=== PATIENT | female | born 1995 | race Caucasian/White ===

== ENCOUNTER 2020-07-14 11:08 | Emergency (ER) | payer OTHER ==
[2020-07-14 11:58] LABS: BASOPHILS % (AUTO) 0.6 %; EOSINOPHILS # (AUTO) 0.1 10^3/uL (0.0-0.7); EOSINOPHILS % (AUTO) 1.4 %; HGB - HEMOGLOBIN 12.1 g/dL (12.0-16.0); LYMPHOCYTES # (AUTO) 1.7 10^3/uL (1.5-3.5); LYMPHOCYTES % (AUTO) 33.9 %; MEAN CORPUSCULAR HEMOGLOBIN 28.1 pg (27.0-31.0); MEAN CORPUSCULAR HGB CONC 31.5 g/dL (32.0-36.0); MEAN CORPUSCULAR VOLUME 89.1 fL (81.0-99.0); MEAN PLATELET VOLUME 9.2 fL (7.9-10.8); MONOCYTES # (AUTO) 0.6 10^3/uL (0.0-1.0); MONOCYTES % (AUTO) 12.8 %; NEUTROPHILS # (AUTO) 2.6 10^3/uL (1.5-6.6); NEUTROPHILS % (AUTO) 51.1 %; PLT - PLATELET COUNT 295 10^3/uL (130-450); RED BLOOD COUNT 4.31 10^6/uL (4.20-5.40); RED CELL DISTRIBUTION WIDTH 15.3 % (12.0-15.0)
[2020-07-14 12:00] LABS: BILIRUBIN,URINE NEGATIVE (NEGATIVE); GLUCOSE, URINE (UA) NEGATIVE (NEGATIVE); KETONES,URINE (UA) NEGATIVE (NEGATIVE); LEUKOCYTE ESTERASE, URINE NEGATIVE (NEGATIVE); NITRITE,URINE NEGATIVE (NEGATIVE); OCCULT BLOOD,URINE MODERATE (NEGATIVE); PH,URINE 7.5 PH (5.0-7.5); PROTEIN,URINE NEGATIVE (NEGATIVE); UROBILINOGEN,URINE 0.2 (NORMAL) E.U./dL (NORMAL)
[2020-07-14 12:04] LABS: CLARITY,URINE CLEAR (CLEAR); HCG UR QUAL NEGATIVE
[2020-07-14 12:10] LABS: BACTERIA,URINE None Seen /HPF (None Seen); RBC,URINE 0-5 /HPF (0-5); SQUAMOUS EPITHELIAL CELL,UR MOD Squamous (<= Few)
[2020-07-14 12:17] LABS: ALBUMIN 3.9 g/dL (3.2-5.5); ALBUMIN/GLOBULIN RATIO 1.3 (1.0-2.2); BILIRUBIN,TOTAL 0.5 mg/dL (0.2-1.0); TOTAL PROTEIN 6.9 g/dL (6.7-8.2)
--- NOTE | 2020-07-14 12:17 | ED Physician Documentation ---
History of Present Illness - Stated complaint Stated Complaint: FEMALE - Chief complaint Chief Complaint: Abd Pain - Additonal information Additional information: 25-year-old female presents to the emergency department for evaluation of heavy vaginal bleeding. She reports that her menstrual cycle started on the 10th as it typically does but yesterday afternoon she began bleeding more heavily. She reports changing her tampon about 12 times in the last 24 hours. She feels lightheaded and dizzy but has had no syncope.She does have a ParaGard in place which was placed in January 2020. She reports regular cycles with this. They typically last 4 days Review of Systems Constitutional: reports: Reviewed and negative Ears: reports: Reviewed and negative Nose: reports: Reviewed and negative Throat: reports: Reviewed and negative Cardiac: reports: Reviewed and negative. denies: Chest pain / pressure, Palpitations, Pedal edema Respiratory: reports: Reviewed and negative. denies: Dyspnea, Cough GI: reports: Reviewed and negative : reports: Vaginal bleeding Skin: reports: Reviewed and negative Musculoskeletal: reports: Reviewed and negative Neurologic: reports: Near syncope, Reviewed and negative. denies: Generalized weakness, Focal weakness, Numbness, Syncope, Seizure Psychiatric: reports: Reviewed and negative Endocrine: reports: Reviewed and negative PD PAST MEDICAL HISTORY - Allergies Allergies/Adverse Reactions: Allergies Allergy/AdvReac Type Severity Reaction Status Date / Time Sulfa (Sulfonamide Allergy Unknown Verified 07/14/20 11:18 Antibiotics) PD ED PE NORMAL - General General: Alert and oriented X 3, No acute distress - Neck Neck: Supple, no meningeal sign - Cardiac Cardiac: RRR, No murmur, No gallop, No rub - Respiratory Respiratory: No respiratory distress, Clear bilaterally - Abdomen Abdomen: Normal bowel sounds, Non tender, Non distended - Derm Derm: Normal color, Warm and dry, No rash - Neuro Neuro: Alert and oriented X 3, 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, No motor deficit Eye Opening: Spontaneous Motor: Obeys Commands Verbal: Oriented GCS Score: 15 Results - Vitals Vitals: Vital Signs - 24 hr 07/14/20 07/14/20 11:12 13:30 Temperature 36.9 C Heart Rate 88 70 Respiratory 18 18 Rate Blood Pressure 127/66 128/75 O2 Saturation 98 100 Oxygen O2 Source Room air - Labs Labs: Laboratory Tests 07/14/20 07/14/20 07/14/20 11:48 11:48 11:48 WBC 5.0 RBC 4.31 Hgb 12.1 Hct 38.4 MCV 89.1 MCH 28.1 MCHC 31.5 L RDW 15.3 H Plt Count 295 MPV 9.2 Neut # (Auto) 2.6 Lymph # (Auto) 1.7 [place] # (Auto) 0.6 Eos # (Auto) 0.1 Baso # (Auto) 0.0 Absolute Nucleated RBC 0.00 Nucleated RBC % 0.0 Sodium 140 Potassium 3.8 Chloride 105 Carbon Dioxide 27 Anion Gap 8.0 BUN 15 Creatinine 1.0 Estimated GFR (MDRD) 67 L Glucose 71 Calcium 9.0 Total Bilirubin 0.5 AST 22 ALT 19 Alkaline Phosphatase 48 Total Protein 6.9 Albumin 3.9 Globulin 3.0 Albumin/Globulin Ratio 1.3 Urine Color YELLOW Urine Clarity CLEAR Urine pH 7.5 Ur Specific [place] 1.015 Urine Protein NEGATIVE Urine Glucose (UA) NEGATIVE Urine Ketones NEGATIVE Urine Occult Blood MODERATE H Urine Nitrite NEGATIVE Urine Bilirubin NEGATIVE Urine Urobilinogen 0.2 (NORMAL) Ur Leukocyte Esterase NEGATIVE Urine RBC 0-5 Urine WBC 0-3 Ur Squamous Epith Cells MOD Squamous H Urine Bacteria None Seen Ur Microscopic Review INDICATED Urine Culture Comments NOT INDICATED Urine HCG, Qual NEGATIVE - Rads (name of study) pelvic US Radiology: Final report received (4.2 cm left ovarian cyst. IUD in appropriate position.) PD MEDICAL DECISION MAKING - ED course Complexity details: reviewed results, considered differential, d/w patient ED course: 25-year-old female presents the emergency department with reported heavy vaginal bleeding for 4 days. She has a copper ParaGard in place. Reassuringly her v ital signs here are normal without hypotension or tachycardia. Hemoglobin is normal. Ultrasound did not reveal any worrisome findings. We do make note of a 4.2 cm left ovarian cyst and the IUD in normal position. Patient reports to me that she [place] will [place] follow-up there. We discussed that if heavy vaginal bleeding persists she may benefit from hormone therapy to include Depo-Provera versus OCP. Emergent return precautions discussed Departure - Departure Disposition: 01 Home, Self Care Clinical Impression: DUB (dysfunctional uterine bleeding) Condition: Stable Record reviewed to determine appropriate education?: Yes Instructions: ED Bleed Irregular Vaginal Comments: Carolyn continue to follow-up with the [employer] tomorrow. Your labs and hemoglobin today are normal. The pelvic ultrasound shows a 4 cm left ovarian cyst. Your IUD is in normal position. To discuss if hormone therapy is appropriate to control your vaginal bleeding. If at any point you have a heart rate that is sustained greater than 120 bpm at rest, you have fainting episodes or fever or suddenly severe lower abdominal pain please return to the ED
[2020-07-14 13:37] VITALS: BP 128/75
--- NOTE | 2020-07-15 06:56 | Ultrasound Report ---
PROCEDURE: Pelvic w/Transvaginal INDICATIONS: HEAVY VB, NEG PREG TEST TECHNIQUE: Real-time scanning was performed of the pelvic organs, with image documentation. Additional endovagi nal scanning was necessary due to incomplete visualization of the adnexal and endometrial structures by transabdominal scanning. COMPARISON: None. FINDINGS: Transabdominal scanning: Limited scanning through the kidneys shows no hydronephrosis. No pathologi c free abdominal or pelvic fluid. Endovaginal scanning: Uterus: Uterus is normal in size at 8.2 x 4.8 x 6.1 cm. The endometrium measures 4 mm in combined t hickness. An intrauterine device is present within the endometrial cavity. Ovaries: Right ovary measures 4.1 x 1.8 x 3.7 cm. Left ovary measures 5.3 x 4.3 x 4.3 cm. Incidental note of a simple left ovarian cyst measuring 4.2 x 3.2 x 3.3 cm. No suspicious solid ovarian/adnexal mass lesions on either side. IMPRESSION: 1. Pelvis without acute sonographic abnormalities. 2. IUD in place within the endometrial cavity. 3. Incidental note of simple left ovarian cyst measuring up to 4.2 cm in size. Reviewed by: Joel Burrell MD on 07/14/2020 2:25 PM PDT Approved by: Joel Burrell MD on 07/14/2020 2:25 PM PDT Station ID: [id number]
== END 2020-07-14 15:30 | disposition home or self-care (01) ==
LOC: ED 11:08
DX: N93.8 Other specified abnormal uterine and vaginal bleeding (principal); N83.292 Other ovarian cyst, left side; Z97.5 Presence of (intrauterine) contraceptive device
CPT/HCPCS: 36415; 76830; 76856; 80053; 81001; 81003; 81025; 83690; 85025; 87086; 99283; 99284

== ENCOUNTER 2020-08-08 21:54 | Emergency (ER) | payer OTHER ==
[2020-08-08 22:18] LABS: BILIRUBIN,URINE NEGATIVE (NEGATIVE); GLUCOSE, URINE (UA) NEGATIVE (NEGATIVE); KETONES,URINE (UA) NEGATIVE (NEGATIVE); LEUKOCYTE ESTERASE, URINE NEGATIVE (NEGATIVE); NITRITE,URINE NEGATIVE (NEGATIVE); OCCULT BLOOD,URINE MODERATE (NEGATIVE); PROTEIN,URINE NEGATIVE (NEGATIVE); UROBILINOGEN,URINE 0.2 (NORMAL) E.U./dL (NORMAL)
[2020-08-08 22:21] LABS: CLARITY,URINE CLEAR (CLEAR); HCG UR QUAL NEGATIVE
[2020-08-08 22:27] LABS: BACTERIA,URINE Few /HPF (None Seen); RBC,URINE 4 /HPF (0-5); SQUAMOUS EPITHELIAL CELL,UR MANY Squamous (<= Few)
[2020-08-08 22:34] LABS: BASOPHILS % (AUTO) 0.4 %; EOSINOPHILS # (AUTO) 0.1 10^3/uL (0.0-0.7); EOSINOPHILS % (AUTO) 0.6 %; HGB - HEMOGLOBIN 12.2 g/dL (12.0-16.0); LYMPHOCYTES # (AUTO) 2.5 10^3/uL (1.5-3.5); LYMPHOCYTES % (AUTO) 29.9 %; MEAN CORPUSCULAR HGB CONC 32.6 g/dL (32.0-36.0); MEAN CORPUSCULAR VOLUME 88.8 fL (81.0-99.0); MEAN PLATELET VOLUME 9.2 fL (7.9-10.8); MONOCYTES % (AUTO) 11.4 %; NEUTROPHILS # (AUTO) 4.9 10^3/uL (1.5-6.6); NEUTROPHILS % (AUTO) 57.5 %; PLT - PLATELET COUNT 302 10^3/uL (130-450); RED BLOOD COUNT 4.21 10^6/uL (4.20-5.40); RED CELL DISTRIBUTION WIDTH 15.3 % (12.0-15.0); WHITE BLOOD COUNT 8.4 x10^3/uL (4.8-10.8)
[2020-08-08] MEDS ORDERED: METOCLOPRAMIDE 10 MG TABLET PO STA (22:43)
[2020-08-08 22:46] LABS: ALBUMIN 4.1 g/dL (3.2-5.5); ALBUMIN/GLOBULIN RATIO 1.3 (1.0-2.2); BILIRUBIN,TOTAL 0.6 mg/dL (0.2-1.0); CREATININE 0.9 mg/dL (0.4-1.0); TOTAL PROTEIN 7.2 g/dL (6.7-8.2)
[2020-08-08] MEDS: IBUPROFEN 600 MG TABLET PO STA ×2 (22:48→22:51)
[2020-08-08] MEDS ORDERED: KETOROLAC 30 MG/ML VIAL IM STA (23:03)
--- NOTE | 2020-08-08 23:14 | ED Physician Documentation ---
PD HPI ABD PAIN - Stated complaint Stated Complaint: ABD PX - Chief complaint Chief Complaint: Neuro - History obtained from History obtained from: Patient, Friend - Additional information Additional information: 25-year-old woman with past medical history of left ovarian cyst presents with abdominal pain sudden onset at 7 PM starting 2 nights ago, intermittent, associated with nausea but no vomiting. Contraction like pain, severe, nonradiating, not relieved with ibuprofen. Denies fevers, urinary symptoms, back pain, vaginal discharge or lesions. Last menstrual period - Started today. Patient is , not currently . Review of Systems Ten Systems: 10 systems reviewed and negative Constitutional: denies: Fever, Chills GI: reports: Abdominal Pain, Nausea. 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 - Past Surgical History Past Surgical History: Yes HEENT: Tonsil/Adenoidectomy - Present Medications Home Medications: Ambulatory Orders Medication Instructions Recorded Confirmed No Known Home Medications 08/08/20 08/08/20 - Allergies Allergies/Adverse Reactions: Allergies Allergy/AdvReac Type Severity Reaction Status Date / Time Sulfa (Sulfonamide Allergy Unknown Verified 08/08/20 22:05 Antibiotics) - Social History Does the pt smoke?: No Smoking Status: Never smoker Does the pt drink ETOH?: Yes Does the pt have substance abuse?: No - Immunizations Immunizations are current?: Yes - POLST Patient has POLST: No PD ED PE NORMAL - Vitals Vital signs reviewed: Yes - General General: Alert and oriented X 3 - HEENT HEENT: Atraumatic, PERRL, EOMI - Neck Neck: Supple, no meningeal sign - Cardiac Cardiac: RRR - Respiratory Respiratory: No respiratory distress, Clear bilaterally - Abdomen Abdomen: Normal bowel sounds, Other (discomfort to palpation in LLQ) - Female Female : Deferred - Rectal Rectal: Deferred - Back Back: No CVA TTP - Derm Derm: Normal color - Extremities Extremities: No deformity - Neuro Neuro: Alert and oriented X 3 - Psych Psych: Normal mood, Normal affect Results - Vitals Vitals: Oxygen O2 Source Room air - Labs Labs: Laboratory Tests 08/08/20 08/08/20 08/08/20 22:10 22:10 22:28 WBC 8.4 RBC 4.21 Hgb 12.2 Hct 37.4 MCV 88.8 MCH 29.0 MCHC 32.6 RDW 15.3 H Plt Count 302 MPV 9.2 Neut # (Auto) 4.9 Lymph # (Auto) 2.5 [place] # (Auto) 1.0 Eos # (Auto) 0.1 Baso # (Auto) 0.0 Absolute Nucleated RBC 0.00 Nucleated RBC % 0.0 Sodium Potassium Chloride Carbon Dioxide Anion Gap BUN Creatinine Estimated GFR (MDRD) Glucose Calcium Total Bilirubin AST ALT Alkaline Phosphatase Total Protein Albumin Globulin Albumin/Globulin Ratio Lipase Urine Color YELLOW Urine Clarity CLEAR Urine pH 7.0 Ur Specific [place] 1.025 1.025 Urine Protein NEGATIVE Urine Glucose (UA) NEGATIVE Urine Ketones NEGATIVE Urine Occult Blood MODERATE H Urine Nitrite NEGATIVE Urine Bilirubin NEGATIVE Urine Urobilinogen 0.2 (NORMAL) Ur Leukocyte Esterase NEGATIVE Urine RBC 4 Urine WBC 0-3 Ur Squamous Epith Cells MANY Squamous H Urine Bacteria Few Ur Microscopic Review INDICATED Urine Culture Comments NOT INDICATED Urine HCG, Qual NEGATIVE 08/08/20 22:28 WBC RBC Hgb Hct MCV MCH MCHC RDW Plt Count MPV Neut # (Auto) Lymph # (Auto) [place] # (Auto) Eos # (Auto) Baso # (Auto) Absolute Nucleated RBC Nucleated RBC % Sodium 137 Potassium 3.7 Chloride 107 Carbon Dioxide 23 Anion Gap 7.0 BUN 16 Creatinine 0.9 Estimated GFR (MDRD) 76 L Glucose 94 Calcium 9.0 Total Bilirubin 0.6 AST 19 ALT 16 Alkaline Phosphatase 49 Total Protein 7.2 Albumin 4.1 Globulin 3.1 Albumin/Globulin Ratio 1.3 Lipase 42 Urine Color Urine Clarity Urine pH Ur Specific [place] Urine Protein Urine Glucose (UA) Urine Ketones Urine Occult Blood Urine Nitrite Urine Bilirubin Urine Urobilinogen Ur Leukocyte Esterase Urine RBC Urine WBC Ur Squamous Epith Cells Urine Bacteria Ur Microscopic Review Urine Culture Comments Urine HCG, Qual PD MEDICAL DECISION MAKING - ED course ED course: 25-year-old woman with history of left ovarian cyst presents with left lower quadrant pain sudden in onset, found to have free fluid on ultrasound. The cyst has also disappeared, suggesting cyst rupture. 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 Strict return precautions given. Departure - Departure Disposition: 01 Home, Self Care Clinical Impression: Ruptured cyst of left ovary, Abdominal pain, Nausea Condition: Good Instructions: Abdominal Pain Comments: You have been seen in the emergency department for abdominal pain. There is no evidence of ovarian torsion on your ultrasound. The ovarian cyst seen previously has now disappeared and there is fluid in your pelvis, likely indicating that the cyst has ruptured. Follow-up with your INSURANCE POLICY ISSUE CLERK doctor for further care. Return to the ED for any new or worsening symptoms. Discharge Date/Time: 08/09/20 01:18
[2020-08-09] MEDS ORDERED: oxyCODONE 5 MG TABLET PO STA (00:11)
[2020-08-09 01:18] VITALS: BP 120/65
--- NOTE | 2020-08-09 09:22 | Ultrasound Report ---
PROCEDURE: Pelvic Complete INDICATIONS: LLQ pain TECHNIQUE: Real-time transabdominal scanning was performed of the pelvic organs, with image documentation. COMPARISON: 07/14/2020 FINDINGS: Uterus: Uterus is normal in size at 8.6 x 4.5 x 6.6 cm. Endometrium measures 8 mm in combined thick ness. Heterogeneous uterine echotexture without focal mass lesions or uterine fibroids. There is suggestion of a septate uterus. The intrauterine device appears to be within the right fundal portion of the en dometrium. Ovaries: Right ovary measures 4.2 x 1.7 x 2.7 cm. Left ovary measures 3.4 x 2.0 x 3.1 cm. Vascular w aveforms are noted in the bilateral ovaries. No suspicious ovarian or adnexal mass lesions. Other: No free pelvic fluid. There is a small cystic structure in the cul-de-sac measuring 1.6 x 1.2 x 1.1 cm. Limited scanning through the kidneys shows no hydronephrosis. IMPRESSION: 1. Suggestion of septate uterine morphology with appropriate placement of the intrauterine device wit hin the endometrial cavity. 2. Normal sonographic appearance of the bilateral ovaries. No sonographic evidence for torsion. 3. A nonspecific 1.7 cm fluid collection in the posterior cul-de-sac possibly representing loculated ascites versus a benign cyst. Recommend follow-up pelvic ultrasound in 6-12 weeks to document stabili ty versus resolution. No significant discrepancy with initial interpretation by overnight radiologist. Reviewed by: Joel Burrell MD on 08/09/2020 8:21 AM [facility] Approved by: Joel Burrell MD on 08/09/2020 8:21 AM [facility] Station ID: [id number]
--- NOTE | 2020-08-09 09:23 | Ultrasound Report ---
PROCEDURE: Pelvic Complete INDICATIONS: LLQ pain TECHNIQUE: Real-time transvaginal scanning was performed of the pelvic organs, with image documentation. COMPARISON: 07/14/2020 FINDINGS: Uterus: Uterus is normal in size at 8.6 x 4.5 x 6.6 cm. Endometrium measures 8 mm in combined thick ness. Heterogeneous uterine echotexture without focal mass lesions or uterine fibroids. There is suggestion of a septate uterus. The intrauterine device appears to be within the right fundal portion of the en dometrium. Ovaries: Right ovary measures 4.2 x 1.7 x 2.7 cm. Left ovary measures 3.4 x 2.0 x 3.1 cm. Vascular w aveforms are noted in the bilateral ovaries. No suspicious ovarian or adnexal mass lesions. Other: No free pelvic fluid. There is a small cystic structure in the cul-de-sac measuring 1.6 x 1.2 x 1.1 cm. Limited scanning through the kidneys shows no hydronephrosis. IMPRESSION: 1. Suggestion of septate uterine morphology with appropriate placement of the intrauterine device wit hin the endometrial cavity. 2. Normal sonographic appearance of the bilateral ovaries. No sonographic evidence for torsion. 3. A nonspecific 1.7 cm fluid collection in the posterior cul-de-sac possibly representing loculated ascites versus a benign cyst. Recommend follow-up pelvic ultrasound in 6-12 weeks to document stabili ty versus resolution. No significant discrepancy with initial interpretation by overnight radiologist. Reviewed by: Joel Burrell MD on 08/09/2020 8:21 AM [facility] Approved by: Joel Burrell MD on 08/09/2020 8:21 AM [facility] Station ID: [id number]
== END 2020-08-09 01:18 | disposition home or self-care (01) ==
LOC: ED 21:54
DX: N83.202 Unspecified ovarian cyst, left side (principal); R10.32 Left lower quadrant pain; R11.0 Nausea; Z97.5 Presence of (intrauterine) contraceptive device
CPT/HCPCS: 36415; 76830; 76856; 80053; 81001; 81025; 83690; 85025; 96372; 99284; A9270; 81003; 87086

== ENCOUNTER 2023-06-09 19:33 | Emergency (ER) | payer OTHER ==
[2023-06-09 19:39] VITALS: BP 135/72; O2SAT 100
--- NOTE | 2023-06-09 19:49 | ED Physician Documentation ---
PD HPI UPPER EXT INJURY - Stated complaint Stated Complaint: L FINGER LAC - Chief complaint Chief Complaint: Laceration - History obtained from History obtained from: Patient (Right-handed woman cut to the pulp of her left middle finger with a knife accidentally at home just prior to arrival. 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 - Past Surgical History Past Surgical History: Yes HEENT: Tonsil/Adenoidectomy - Present Medications Home Medications: Ambulatory Orders Medication Instructions Recorded Confirmed Dicyclomine [Bentyl] 10 mg PO Q6HR PRN #20 cap 05/12/23 Ondansetron Odt [Zofran] 4 mg TL Q6H PRN #10 tablet 05/12/23 Sertraline HCl 100 mg PO DAILY 05/12/23 05/12/23 - Allergies Allergies/Adverse Reactions: Allergies Allergy/AdvReac Type Severity Reaction Status Date / Time Sulfa (Sulfonamide Allergy Unknown Verified 06/09/23 19:35 Antibiotics) - Social History Does the pt smoke?: No Smoking Status: Never smoker Does the pt drink ETOH?: Yes Does the pt have substance abuse?: No - Immunizations Immunizations are current?: Yes - POLST Patient has POLST: No PD ED PE NORMAL - Vitals Vital signs reviewed: Yes - General General: Alert and oriented X 3, No acute distress - Extremities Extremities: Other (Less than 1 cm laceration on the pulp of the left index finger) - Neuro Neuro: Alert and oriented X 3, Normal speech Results - Vitals Vitals: Vital Signs - 24 hr 06/09/23 19:36 Temperature 36.6 C Heart Rate 71 Respiratory 16 Rate Blood Pressure 135/72 H O2 Saturation 100 Oxygen O2 Source Room air Procedures - Laceration (location) Left third finger Length in cm: 0.8 Wound type: Linear Neurovascular status: Sensory intact, Motor intact, Vascular intact Anesthesia: Lidocaine 1% (Digital block) Wound preparation: Irrigated copiously NS Skin layer closure: Nylon, Interrupted, Size #-0 - enter number (5-0), Sutures - enter # (2) Other: Tetanus UTD Departure - Departure Disposition: 01 Home, Self Care Clinical Impression: Laceration of left middle finger Condition: Good Record reviewed to determine appropriate education?: Yes Instructions: ED Laceration Hand Comments: Come back for any signs of infection which would include: Redness, swelling, drainage, increased pain, or fevers. You can wash it soap and water. Keep it covered and moist with bacitracin ointment which is available over the counter; avoid neosporin. Follow-up with your physician in about 14 days for suture removal. Forms: PCP List
== END 2023-06-09 20:15 | disposition home or self-care (01) ==
LOC: ED 19:33
DX: S61.213A Laceration without foreign body of left middle finger without damage to nail, initial encounter (principal); W45.8XXA Other foreign body or object entering through skin, initial encounter; Y92.009 Unspecified place in unspecified non-institutional (private) residence as the place of occurrence of the external cause
CPT/HCPCS: 12001; 99281

== ENCOUNTER 2023-08-23 09:54 | Emergency (ER) | payer OTHER ==
[2023-08-23 10:40] LABS: BASOPHILS % (AUTO) 0.3 %; EOSINOPHILS # (AUTO) 0.1 10^3/uL (0.0-0.7); EOSINOPHILS % (AUTO) 0.6 %; HCT - HEMATOCRIT 39.7 % (37.0-47.0); HGB - HEMOGLOBIN 12.9 g/dL (12.0-16.0); LYMPHOCYTES # (AUTO) 1.9 10^3/uL (1.5-3.5); LYMPHOCYTES % (AUTO) 21.5 %; MEAN CORPUSCULAR HEMOGLOBIN 29.1 pg (27.0-31.0); MEAN CORPUSCULAR HGB CONC 32.5 g/dL (32.0-36.0); MEAN CORPUSCULAR VOLUME 89.6 fL (81.0-99.0); MEAN PLATELET VOLUME 9.2 fL (7.9-10.8); MONOCYTES # (AUTO) 0.9 10^3/uL (0.0-1.0); MONOCYTES % (AUTO) 10.1 %; NEUTROPHILS # (AUTO) 5.9 10^3/uL (1.5-6.6); NEUTROPHILS % (AUTO) 67.2 %; PLT - PLATELET COUNT 324 10^3/uL (130-450); RED BLOOD COUNT 4.43 10^6/uL (4.20-5.40); RED CELL DISTRIBUTION WIDTH 13.5 % (12.0-15.0); WHITE BLOOD COUNT 8.8 x10^3/uL (4.8-10.8)
[2023-08-23 10:56] LABS: ALBUMIN 4.5 g/dL (3.2-5.5); ALBUMIN/GLOBULIN RATIO 2.3 (1.0-2.2); BILIRUBIN,TOTAL 0.4 mg/dL (0.2-1.0); CALCIUM 9.9 mg/dL (8.5-10.3); CREATININE 0.7 mg/dL (0.6-1.3); POTASSIUM 3.9 mmol/L (3.5-4.5); TOTAL PROTEIN 6.5 g/dL (6.4-8.9)
--- NOTE | 2023-08-23 12:39 | ED Physician Documentation ---
PD HPI ABD PAIN - Stated complaint Stated Complaint: RT SIDE PX - Chief complaint Chief Complaint: Abd Pain - History obtained from History obtained from: Patient - Additional information Additional information: 28-year-old woman with history of Crohn's disease and bowel surgeries, she is a G2, P1 at 6 weeks gestation and she has had 5 days of right pelvic pain consistent with prior episodes of ovarian cyst. No bleeding. 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 - Past Surgical History Past Surgical History: Yes HEENT: Tonsil/Adenoidectomy - Present Medications Home Medications: Ambulatory Orders Medication Instructions Recorded Confirmed Sertraline HCl 100 mg PO DAILY 05/12/23 08/23/23 metFORMIN [Glucophage] 500 mg PO ONCE 08/23/23 08/23/23 - Allergies Allergies/Adverse Reactions: Allergies Allergy/AdvReac Type Severity Reaction Status Date / Time Sulfa (Sulfonamide Allergy Unknown Verified 06/09/23 19:35 Antibiotics) - Social History Does the pt smoke?: No Smoking Status: Never smoker Does the pt drink ETOH?: Yes Does the pt have substance abuse?: No - Immunizations Immunizations are current?: Yes - POLST Patient has POLST: No PD ED PE NORMAL - Vitals Vital signs reviewed: Yes - General General: Alert and oriented X 3, No acute distress - Abdomen Abdomen: Normal bowel sounds, Soft, Non tender - Neuro Neuro: Alert and oriented X 3, Normal speech Results - Vitals Vitals: Vital Signs - 24 hr 08/23/23 08/23/23 10:15 14:05 Temperature 36.1 C L 36.8 C Heart Rate 80 74 Respiratory 20 17 Rate Blood Pressure 131/84 H 127/74 O2 Saturation 98 100 Oxygen O2 Source Room air - Labs Labs: Laboratory Tests 08/23/23 08/23/23 08/23/23 10:10 10:10 10:36 WBC 8.8 RBC 4.43 Hgb 12.9 Hct 39.7 MCV 89.6 MCH 29.1 MCHC 32.5 RDW 13.5 Plt Count 324 MPV 9.2 Neut # (Auto) 5.9 Lymph # (Auto) 1.9 [place] # (Auto) 0.9 Eos # (Auto) 0.1 Baso # (Auto) 0.0 Absolute Nucleated RBC 0.00 Nucleated RBC % 0.0 Sodium Potassium Chloride Carbon Dioxide Anion Gap BUN Creatinine Estimated GFR (MDRD) Glucose Calcium Total Bilirubin AST ALT Alkaline Phosphatase Total Protein Albumin Globulin Albumin/Globulin Ratio Lipase Beta HCG, Quant Urine Color YELLOW Urine Clarity CLEAR Urine pH 6.5 Ur Specific [place] <=1.005 Urine Protein NEGATIVE Urine Glucose (UA) NEGATIVE Urine Ketones NEGATIVE Urine Occult Blood NEGATIVE Urine Nitrite NEGATIVE Urine Bilirubin NEGATIVE Urine Urobilinogen 0.2 (NORMAL) Ur Leukocyte Esterase NEGATIVE Ur Microscopic Review NOT INDICATED Urine Culture Comments NOT INDICATED Urine HCG, Qual POSITIVE 08/23/23 08/23/23 10:36 10:36 WBC RBC Hgb Hct MCV MCH MCHC RDW Plt Count MPV Neut # (Auto) Lymph # (Auto) [place] # (Auto) Eos # (Auto) Baso # (Auto) Absolute Nucleated RBC Nucleated RBC % Sodium 135 Potassium 3.9 Chloride 103 Carbon Dioxide 25 Anion Gap 7.0 BUN 8 Creatinine 0.7 Estimated GFR (MDRD) 99 Glucose 87 Calcium 9.9 Total Bilirubin 0.4 AST 20 ALT 29 Alkaline Phosphatase 49 Total Protein 6.5 Albumin 4.5 Globulin 2.0 L Albumin/Globulin Ratio 2.3 H Lipase 27 Beta HCG, Quant 76011.4 Urine Color Urine Clarity Urine pH Ur Specific [place] Urine Protein Urine Glucose (UA) Urine Ketones Urine Occult Blood Urine Nitrite Urine Bilirubin Urine Urobilinogen Ur Leukocyte Esterase Ur Microscopic Review Urine Culture Comments Urine HCG, Qual PD Medical Decision Making - ED course ED course: 28-year-old woman presents with right pelvic pain in early and nontender. Ultrasound demonstrating live IUP And right ovarian cyst and patient was reassured. CBC, CMP UA are negative with positive test both urine and serum. Departure - Departure Disposition: 01 Home, Self Care Clinical Impression: Right ovarian cyst Condition: Good Record reviewed to determine appropriate education?: Yes Instructions: ED Cyst Ovarian, ED Preg Established Normal Sxs Comments: Reassuring ultrasound showing ovarian cyst and no sign of ectopic . You can take Tylenol for the pain. Continue routine care otherwise. Return if worse. Forms: PCP List Discharge Date/Time: 08/23/23 14:06
[2023-08-23 12:44] LABS: HCG UR QUAL POSITIVE
[2023-08-23 12:45] LABS: BILIRUBIN,URINE NEGATIVE (NEGATIVE); GLUCOSE, URINE (UA) NEGATIVE (NEGATIVE); KETONES,URINE (UA) NEGATIVE (NEGATIVE); LEUKOCYTE ESTERASE, URINE NEGATIVE (NEGATIVE); NITRITE,URINE NEGATIVE (NEGATIVE); OCCULT BLOOD,URINE NEGATIVE (NEGATIVE); PH,URINE 6.5 PH (5.0-7.5); PROTEIN,URINE NEGATIVE (NEGATIVE); UROBILINOGEN,URINE 0.2 (NORMAL) E.U./dL (NORMAL)
[2023-08-23 12:50] LABS: CLARITY,URINE CLEAR (CLEAR)
[2023-08-23 14:13] VITALS: BP 127/74; O2SAT 100
--- NOTE | 2023-08-23 14:23 | Ultrasound Report ---
PROCEDURE: OB First Trimester w/TV INDICATIONS: abd pain, OUTSIDE/PRIOR DATING DATA: Last menstrual period (LMP): 07/12/2023. LMP-based estimated date of delivery (GABE): 04/17/2024. First dating scan (date and location): 08/23/2023. Estimated date of delivery (GABE) from first dating scan: 04/18/2024. TECHNIQUE: Real-time scanning was performed of the fetus and maternal pelvic organs, with image documentation. Endovaginal scanning was also performed to better visualize the fetus and maternal ovaries. COMPARISON: None. FINDINGS: Intrauterine gestational sac present. Embryo: 0.26 cm Heart rate: 107 bpm. Other: No perigestational fluid collection. Measurement variability in dating: +/- 4 weeks by LMP, +/- 7 days by mean sac diameter (use before 6 weeks gestation if crown-rump length not able to be measured), +/- 5 days by crown-rump length (6-12 weeks gestation). Maternal organs: There is a right ovarian cyst measuring 3.5 x 1.9 x 3.1 cm. IMPRESSION: Very early intrauterine with crown-rump length and heartbeat measuring 5 weeks 6 days. Reviewed by: Bennett Hannon MD on 08/23/2023 2:22 PM PST Approved by: Bennett Hannon MD on 08/23/2023 2:22 PM PST Station ID: [id number]
== END 2023-08-23 14:06 | disposition home or self-care (01) ==
LOC: ED 09:54
DX: O34.81 Maternal care for other abnormalities of pelvic organs, first trimester (principal); N83.201 Unspecified ovarian cyst, right side; Z3A.01 Less than 8 weeks gestation of pregnancy
CPT/HCPCS: 36415; 80053; 81001; 81003; 81025; 83690; 84702; 85025; 87086; 99283; 99284

== ENCOUNTER 2023-08-28 08:00 | Outpatient (CLI) | payer OTHER ==
[2023-08-28 16:05] LABS: BILIRUBIN,URINE NEGATIVE (NEGATIVE); GLUCOSE, URINE (UA) NEGATIVE (NEGATIVE); KETONES,URINE (UA) NEGATIVE (NEGATIVE); LEUKOCYTE ESTERASE, URINE NEGATIVE (NEGATIVE); NITRITE,URINE NEGATIVE (NEGATIVE); OCCULT BLOOD,URINE NEGATIVE (NEGATIVE); PH,URINE 7.5 PH (5.0-7.5); PROTEIN,URINE NEGATIVE (NEGATIVE); UROBILINOGEN,URINE 0.2 (NORMAL) E.U./dL (NORMAL)
[2023-08-28 16:23] LABS: BACTERIA,URINE None Seen /HPF (None Seen); CLARITY,URINE CLEAR (CLEAR); RBC,URINE 0-5 /HPF (0-5); SQUAMOUS EPITHELIAL CELL,UR RARE Squamous (<= Few); WBC,URINE 0-3 /HPF (0-5)
== END 2023-08-28 23:59 | disposition home or self-care (01) ==
LOC: LAB.WC 08:00
PROVIDERS: ATTEND Obstetrics & Gynecology
DX: Z34.90 Encounter for supervision of normal pregnancy, unspecified, unspecified trimester (principal)
CPT/HCPCS: 81001; 87086

== ENCOUNTER 2023-08-30 13:22 | Outpatient (CLI) | payer OTHER ==
[2023-08-30 13:41] LABS: BASOPHILS % (AUTO) 0.4 %; EOSINOPHILS # (AUTO) 0.1 10^3/uL (0.0-0.7); EOSINOPHILS % (AUTO) 0.5 %; HCT - HEMATOCRIT 38.7 % (37.0-47.0); HGB - HEMOGLOBIN 12.6 g/dL (12.0-16.0); LYMPHOCYTES # (AUTO) 1.8 10^3/uL (1.5-3.5); LYMPHOCYTES % (AUTO) 15.7 %; MEAN CORPUSCULAR HEMOGLOBIN 29.3 pg (27.0-31.0); MEAN CORPUSCULAR HGB CONC 32.6 g/dL (32.0-36.0); MEAN PLATELET VOLUME 9.6 fL (7.9-10.8); MONOCYTES # (AUTO) 1.1 10^3/uL (0.0-1.0); NEUTROPHILS # (AUTO) 8.3 10^3/uL (1.5-6.6); PLT - PLATELET COUNT 322 10^3/uL (130-450); RED CELL DISTRIBUTION WIDTH 13.7 % (12.0-15.0); WHITE BLOOD COUNT 11.4 x10^3/uL (4.8-10.8)
[2023-08-30 14:36] LABS: CREATININE,URINE 50.8 mg/dL; TOTAL PROTEIN,URINE TIMED < 4 mg/dL
[2023-08-30 14:39] LABS: ALBUMIN 4.5 g/dL (3.2-5.5); ALBUMIN/GLOBULIN RATIO 1.9 (1.0-2.2); BILIRUBIN,TOTAL 0.3 mg/dL (0.2-1.0); CALCIUM 10.1 mg/dL (8.5-10.3); CREATININE 0.8 mg/dL (0.6-1.3); MAGNESIUM 1.8 mg/dL (1.7-2.3); POTASSIUM 3.7 mmol/L (3.5-4.5); TOTAL PROTEIN 6.9 g/dL (6.4-8.9)
[2023-08-30 19:38] LABS: ESTIMATED AVERAGE GLUCOSE 97 mg/dL (70-100)
[2023-08-31 06:10] LABS: HBsAG SCREEN Negative (Negative); RPR Non Reactive (Non Reactive)
[2023-08-31 10:09] LABS: VARICELLA-ZOSTER AB IGG <135 index (Immune >165)
[2023-08-31 20:08] LABS: HCV AB Non Reactive (Non Reactive); HIV SCREEN 4TH GENERATION Non Reactive (Non Reactive)
== END 2023-08-30 13:23 | disposition home or self-care (01) ==
LOC: LAB 13:22
PROVIDERS: ATTEND Obstetrics & Gynecology
DX: O21.0 Mild hyperemesis gravidarum (principal); O99.280 Endocrine, nutritional and metabolic diseases complicating pregnancy, unspecified trimester; E28.2 Polycystic ovarian syndrome
CPT/HCPCS: 36415; 80053; 82570; 83036; 83735; 84156; 85025; 86592; 86762; 86787; 86803; 86850; 86900; 86901; 87340; 87389

== ENCOUNTER 2023-09-01 18:27 | Outpatient (CLI) | payer OTHER ==
--- NOTE | 2023-09-03 17:31 | Ultrasound Report ---
PROCEDURE: OB First Trimester INDICATIONS: POSITIVE TEST OUTSIDE/PRIOR DATING DATA: Last menstrual period (LMP): 07/12/2023. LMP-based estimated date of delivery (GABE): 04/17/2024. First dating scan (date and location): 08/23/2023. Estimated date of delivery (GABE) from first dating scan: 04/18/2024. TECHNIQUE: Real-time scanning was performed of the fetus and maternal pelvic organs, with image documentation. COMPARISON: None. FINDINGS: Intrauterine gestational sac present. Embryo: There is a gestational sac and a pole which measures 0.96 cm for a gestational age of 7 weeks, 0 days. Heart rate: 141 bpm. Other: There is a 1.8 x 1.6 x 2.0 cm subchorionic bleed. Normal yolk sac noted. Measurement variability in dating: +/- 4 weeks by LMP, +/- 7 days by mean sac diameter (use before 6 weeks gestation if crown-rump length not able to be measured), +/- 5 days by crown-rump length (6-12 weeks gestation). Maternal organs: Ovaries appear within normal limits. There is a right ovarian cyst which may repres ent a corpus luteal cyst. IMPRESSION: 1. Single live intrauterine gestation with a gestational age of 7 weeks, 0 days by crown-rump length. 2. Small subchorionic hemorrhage. 3. Probable right corpus luteal cyst. Reviewed by: Eloina Branham MD on 09/03/2023 5:30 PM PST Approved by: Eloina Branham MD on 09/03/2023 5:30 PM PST Station ID: [id number]
== END 2023-09-01 18:28 | disposition home or self-care (01) ==
LOC: DI 18:27
PROVIDERS: ATTEND Obstetrics & Gynecology
DX: O20.8 Other hemorrhage in early pregnancy (principal); O34.81 Maternal care for other abnormalities of pelvic organs, first trimester; N83.11 Corpus luteum cyst of right ovary; Z3A.01 Less than 8 weeks gestation of pregnancy

== ENCOUNTER 2023-09-21 20:52 | Emergency (ER) | payer OTHER ==
[2023-09-21] MEDS ORDERED: SODIUM CHLORIDE 0.9% 1,000 ML IV STA (21:08)
[2023-09-21 21:20] LABS: BASOPHILS # (AUTO) 0.1 10^3/uL (0.0-0.1); BASOPHILS % (AUTO) 0.4 %; EOSINOPHILS # (AUTO) 0.1 10^3/uL (0.0-0.7); EOSINOPHILS % (AUTO) 0.4 %; HCT - HEMATOCRIT 36.9 % (37.0-47.0); HGB - HEMOGLOBIN 12.3 g/dL (12.0-16.0); LYMPHOCYTES # (AUTO) 1.9 10^3/uL (1.5-3.5); LYMPHOCYTES % (AUTO) 14.8 %; MEAN CORPUSCULAR HEMOGLOBIN 29.4 pg (27.0-31.0); MEAN CORPUSCULAR HGB CONC 33.3 g/dL (32.0-36.0); MEAN CORPUSCULAR VOLUME 88.1 fL (81.0-99.0); MEAN PLATELET VOLUME 9.4 fL (7.9-10.8); MONOCYTES # (AUTO) 1.1 10^3/uL (0.0-1.0); MONOCYTES % (AUTO) 8.5 %; NEUTROPHILS # (AUTO) 9.7 10^3/uL (1.5-6.6); NEUTROPHILS % (AUTO) 75.5 %; PLT - PLATELET COUNT 326 10^3/uL (130-450); RED BLOOD COUNT 4.19 10^6/uL (4.20-5.40); RED CELL DISTRIBUTION WIDTH 14.3 % (12.0-15.0); WHITE BLOOD COUNT 12.9 x10^3/uL (4.8-10.8)
[2023-09-21 21:32] LABS: ALBUMIN 4.1 g/dL (3.2-5.5); ALBUMIN/GLOBULIN RATIO 1.6 (1.0-2.2); BILIRUBIN,TOTAL 0.3 mg/dL (0.2-1.0); CALCIUM 9.6 mg/dL (8.5-10.3); CREATININE 0.7 mg/dL (0.6-1.3); POTASSIUM 3.6 mmol/L (3.5-4.5); TOTAL PROTEIN 6.7 g/dL (6.4-8.9)
[2023-09-21 23:38] LABS: BILIRUBIN,URINE NEGATIVE (NEGATIVE); GLUCOSE, URINE (UA) NEGATIVE (NEGATIVE); KETONES,URINE (UA) NEGATIVE (NEGATIVE); LEUKOCYTE ESTERASE, URINE NEGATIVE (NEGATIVE); NITRITE,URINE NEGATIVE (NEGATIVE); OCCULT BLOOD,URINE NEGATIVE (NEGATIVE); PROTEIN,URINE NEGATIVE (NEGATIVE); UROBILINOGEN,URINE 0.2 (NORMAL) E.U./dL (NORMAL)
[2023-09-21 23:42] LABS: CLARITY,URINE CLEAR (CLEAR)
[2023-09-22 01:07] LABS: HCG UR QUAL POSITIVE
[2023-09-22] MEDS ORDERED: diphenhydrAMINE INJ 50 MG/ML VIAL IVP STA (01:24)
[2023-09-22] MEDS ORDERED: METOCLOPRAMIDE 10 MG/2 ML VIAL IVP STA (01:24)
[2023-09-22] MEDS ORDERED: KETOROLAC 15 MG/ML VIAL IVP STA (01:24)
[2023-09-22] MEDS ORDERED: ACETAMINOPHEN 325 MG TABLET PO STA (01:27)
--- NOTE | 2023-09-22 02:32 | ED Physician Documentation ---
History of Present Illness - Stated complaint Stated Complaint: N/V - Chief complaint Chief Complaint: Abd Pain - History obtained from History obtained from: Patient - Additonal information Additional information: 28-year-old woman at 10 weeks gestational age complicated by hyperemesis gravidarum presents with nonbloody nonbilious nausea and vomiting tonight. Denies uterine contractions, vaginal bleeding, urinary symptoms. Review of Systems Constitutional: denies: Fever, Chills Eyes: denies: Loss of vision, Decreased vision, Photophobia Throat: denies: Sore throat Cardiac: denies: Chest pain / pressure Respiratory: denies: Dyspnea GI: reports: Nausea, Vomiting. 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: Ovarian cysts - Past Surgical History Past Surgical History: Yes HEENT: Tonsil/Adenoidectomy - Present Medications Home Medications: Ambulatory Orders Medication Instructions Recorded Confirmed Sertraline HCl 50 mg PO DAILY 05/12/23 09/22/23 metFORMIN [Glucophage] 500 mg PO DAILY 08/23/23 09/22/23 Metoclopramide [Reglan] 5 mg PO TID PRN 09/22/23 09/22/23 Ondansetron HCl 4 mg PO Q6HR PRN 09/22/23 09/22/23 PROMETHAZINE SUPP Prepack 2 25 mg OK DAILY PRN 09/22/23 09/22/23 [PHENADOZ SUPP Prepack 2] - Allergies Allergies/Adverse Reactions: Allergies Allergy/AdvReac Type Severity Reaction Status Date / Time Sulfa (Sulfonamide Allergy Unknown Verified 09/21/23 20:57 Antibiotics) - Social History Does the pt smoke?: No Smoking Status: Never smoker Does the pt drink ETOH?: Yes Does the pt have substance abuse?: No - Immunizations Immunizations are current?: Yes - POLST Patient has POLST: No PD ED PE NORMAL - Vitals Vital signs reviewed: Yes - General General: Alert and oriented X 3, No acute distress, Well developed/nourished - HEENT HEENT: Atraumatic, PERRL, EOMI - Neck Neck: Supple, no meningeal sign - Cardiac Cardiac: RRR - Respiratory Respiratory: No respiratory distress, Clear bilaterally - Abdomen Abdomen: Non tender, Non distended, Other (palpable gravid uterus on abdominal exam) - Back Back: No CVA TTP - Derm Derm: Normal color, Warm and dry Results - Vitals Vitals: Vital Signs - 24 hr 09/21/23 09/21/23 09/22/23 20:57 23:24 01:00 Temperature 36.5 C 36.7 C Heart Rate 79 120 H 74 Respiratory 16 16 16 Rate Blood Pressure 140/83 H 129/79 137/79 H O2 Saturation 98 100 98 09/22/23 02:30 Temperature Heart Rate 74 Respiratory 16 Rate Blood Pressure 145/83 H O2 Saturation 99 Oxygen O2 Source Room air - Labs Labs: Laboratory Tests 09/21/23 09/21/23 09/21/23 21:16 21:16 23:25 WBC 12.9 H RBC 4.19 L Hgb 12.3 Hct 36.9 L MCV 88.1 MCH 29.4 MCHC 33.3 RDW 14.3 Plt Count 326 MPV 9.4 Neut # (Auto) 9.7 H Lymph # (Auto) 1.9 Amador # (Auto) 1.1 H Eos # (Auto) 0.1 Baso # (Auto) 0.1 Absolute Nucleated RBC 0.00 Nucleated RBC % 0.0 Sodium 136 Potassium 3.6 Chloride 103 Carbon Dioxide 25 Anion Gap 8.0 BUN 7 Creatinine 0.7 Estimated GFR (MDRD) 99 Glucose 92 Calcium 9.6 Total Bilirubin 0.3 AST 16 ALT 18 Alkaline Phosphatase 48 Total Protein 6.7 Albumin 4.1 Globulin 2.6 Albumin/Globulin Ratio 1.6 Lipase 46 Urine Color YELLOW Urine Clarity CLEAR Urine pH 7.0 Ur Specific Dozier 1.010 Urine Protein NEGATIVE Urine Glucose (UA) NEGATIVE Urine Ketones NEGATIVE Urine Occult Blood NEGATIVE Urine Nitrite NEGATIVE Urine Bilirubin NEGATIVE Urine Urobilinogen 0.2 (NORMAL) Ur Leukocyte Esterase NEGATIVE Ur Microscopic Review NOT INDICATED Urine Culture Comments NOT INDICATED Urine HCG, Qual 09/21/23 23:25 WBC RBC Hgb Hct MCV MCH MCHC RDW Plt Count MPV Neut # (Auto) Lymph # (Auto) Amador # (Auto) Eos # (Auto) Baso # (Auto) Absolute Nucleated RBC Nucleated RBC % Sodium Potassium Chloride Carbon Dioxide Anion Gap BUN Creatinine Estimated GFR (MDRD) Glucose Calcium Total Bilirubin AST ALT Alkaline Phosphatase Total Protein Albumin Globulin Albumin/Globulin Ratio Lipase Urine Color Urine Clarity Urine pH Ur Specific Dozier Urine Protein Urine Glucose (UA) Urine Ketones Urine Occult Blood Urine Nitrite Urine Bilirubin Urine Urobilinogen Ur Leukocyte Esterase Ur Microscopic Review Urine Culture Comments Urine HCG, Qual POSITIVE PD Medical Decision Making - ED course ED course: 28yF currently at 10 wga p/w nbnb n/v and headache, resolving s/p IV reglan, benadryl, and oral tylenol as well as 1L IVF. Labwork noncontributory. patient requesting to go home. FHR 163 on POCUS. advised outpatient f/u with manager of global. return precautions given. Departure - Departure Disposition: Home, Self Care Clinical Impression: Vomiting, Hyperemesis gravidarum Condition: Stable Instructions: Hyperemesis Comments: You were seen in the emergency department for vomiting related to as well as for headache. Glad you are feeling better! Please follow-up with your manager of global and return to the emergency department if you have any new or worsening symptoms or other concerns. Forms: PCP List
[2023-09-22 02:51] VITALS: BP 145/83; O2SAT 99
== END 2023-09-22 02:55 | disposition home or self-care (01) ==
LOC: ED 20:52
DX: O21.0 Mild hyperemesis gravidarum (principal); Z3A.10 10 weeks gestation of pregnancy; Z79.84 Long term (current) use of oral hypoglycemic drugs; Z79.899 Other long term (current) drug therapy
CPT/HCPCS: 36415; 80053; 81003; 81025; 83690; 85025; 96374; 96375; 99283; A9270; J1200; J2765; 81001; 87086

== ENCOUNTER 2023-10-04 08:00 | Outpatient (CLI) | payer OTHER ==
[2023-10-05 12:42] LABS: BACTERIAL VAGINOSIS DNA NEGATIVE (NEGATIVE); CANDIDA GLABRATA DNA NEGATIVE (NEGATIVE); CANDIDA GROUP DNA NEGATIVE (NEGATIVE); CANDIDA KRUSEI DNA NEGATIVE (NEGATIVE); TRICHOMONAS VAGINALIS DNA NEGATIVE (NEGATIVE)
[2023-10-05 12:44] LABS: CHLAMYDIA TRACHOMATIS DNA NEGATIVE (NEGATIVE); NEISSERIA GONORRHOEAE DNA NEGATIVE (NEGATIVE)
== END 2023-10-04 08:01 | disposition home or self-care (01) ==
LOC: LAB.WC 08:00
PROVIDERS: ATTEND Nurse Practitioner
DX: O99.891 Other specified diseases and conditions complicating pregnancy (principal); N89.8 Other specified noninflammatory disorders of vagina
CPT/HCPCS: 81514; 87491; 87591; 87661

== ENCOUNTER 2023-11-07 13:44 | Outpatient (CLI) | payer OTHER ==
[2023-11-09 21:07] LABS: AFP MOM 0.83 (.); AFP VALUE 29.7 ng/mL (.); DIA VALUE 72.89 pg/mL (.); DSR (BY AGE) 1 IN 699 (.); DSR (SECOND TRIMESTER) 1 IN 10000 (.); GEST. AGE ON COLLECTION DATE 16.7 WEEKS (.); HCG MOM 0.47 (.); HCG VALUE 16789 mIU/mL (.); INSULIN DEP DIABETES No (.); MULTIPLE GESTATION No (.); OPEN SPINA BIFIDA RISK 1 IN 10000 (.); RACE Caucasian (.); RESULTS Report (.); TEST RESULTS *Screen Negative* (.); TRISOMY 18 RISK Not increased (.); UE3 VALUE 1.21 ng/mL (.); WEIGHT 159 lbs (.)
== END 2023-11-07 13:45 | disposition home or self-care (01) ==
LOC: LAB 13:44
PROVIDERS: ATTEND Obstetrics & Gynecology
DX: Z34.90 Encounter for supervision of normal pregnancy, unspecified, unspecified trimester (principal)
CPT/HCPCS: 36415; 81511